=== PATIENT | male | born 1990 | race Caucasian/White ===

== ENCOUNTER 2022-08-24 03:30 | Emergency (ER) | payer MEDICARE, BC | END 2022-08-24 03:45 | LOC: MED 03:30 | DX: F10.10 Alcohol abuse, uncomplicated (principal); Z02.89 Encounter for other administrative examinations; V89.2XXA Person injured in unspecified motor-vehicle accident, traffic, initial encounter; Y93.89 Activity, other specified; Y92.89 Other specified places as the place of occurrence of the external cause; Y99.8 Other external cause status | CPT/HCPCS: 99283 ==